=== PATIENT | male | born 1945 | race Caucasian/White ===

== ENCOUNTER 2019-03-21 17:01 | Inpatient (IN) | payer MEDICAID, OTHER ==
[~2019-03-21] VITALS: Ht 165.1 cm; Wt 66.4 kg
[~2019-03-21 17:01] MED LIST: AMLO10TA7 PO; ATOR20TA65 PO; HYDR-4153 PO; LABE100T5 PO; LEVO500T2 PO; MULT-248 PO; TAMS0.4C32 PO
[2019-03-21 17:34] LABS: BASOPHILS % (AUTO) 0.3 % (0.0-5.0); EOSINOPHILS % (AUTO) 0.2 % (0.0-8.0); HEMATOCRIT 27.6 % (42-54); LYMPHOCYTES % (AUTO) 9.1 % (21.0-51.0); MEAN CORPUSCULAR HEMOGLOBIN 33.7 pg (27.0-33.0); MEAN CORPUSCULAR VOLUME 96.3 fL (79-99); MONOCYTES % (AUTO) 4.7 % (3.0-13.0); NEUTROPHILS % (AUTO) 85.7 % (40.0-77.0); PLATELET COUNT (AUTO) 190 K/uL (130-400); RED BLOOD CELL COUNT(AUTO) 2.87 MIL/uL (4.50-6.20); RED CELL DISTRIBUTION WIDTH 13.1 % (11.0-15.5); WHITE BLOOD COUNT (AUTO) 7.9 K/uL (4.8-10.8)
[2019-03-21 17:42] LABS: CREATININE 3.1 mg/dL (0.5-1.5); POTASSIUM 4.3 mmol/L (3.5-5.1)
[2019-03-21 17:46] LABS: ALBUMIN 3.4 g/dL (3.5-5.0); BILIRUBIN,TOTAL 0.4 mg/dL (0.2-1.0)
[2019-03-21 18:00] LABS: B-TYPE NATRIURETIC PEPTIDE 1770 pg/mL (0-100)
[2019-03-21] MEDS ORDERED: FUROSEMIDE 10 MG/ML 2ML VIAL ONE (19:12)
[2019-03-21] MEDS ORDERED: IPRATROPIUM/ALBUTEROL SULFATE 3 ML SOLUTION IH ONE (20:12)
[2019-03-21] MEDS ORDERED: HYDRALAZINE HCL 20 MG/ML VIAL ONE (20:17)
[2019-03-21 20:22] LABS: APPEARANCE,URINE Clear (CLEAR); BILIRUBIN,URINE Negative (NEGATIVE); COLOR,URINE Yellow (YELLOW); GLUCOSE, URINE (UA) Negative (NEGATIVE); KETONES,URINE Negative (NEGATIVE); LEUKOCYTE ESTERASE ,URINE Large (NEGATIVE); NITRATE,URINE Positive (NEGATIVE); OCCULT BLOOD,URINE Negative (NEGATIVE); PROTEIN,URINE POS 2+ mg/dL (NEGATIVE); UROBILINOGEN,URINE 0.2 mg/dL (0.2-1.0)
[2019-03-21] MEDS ORDERED: MORPHINE SULFATE 2 MG/ML 1ML SYG IV PRN (20:45)
[2019-03-21] MEDS ORDERED: IPRATROPIUM/ALBUTEROL SULFATE 3 ML SOLUTION IH PRN (20:45)
[2019-03-21] MEDS ORDERED: ONDANSETRON HCL 4 MG/2 ML VIAL IV PRN (20:45)
[2019-03-21] MEDS ORDERED: HYDRALAZINE HCL 20 MG/ML VIAL IV PRN (20:45)
[2019-03-21] MEDS ORDERED: ACETAMINOPHEN 325 MG TAB PO PRN ×2 (20:45)
[2019-03-21] MEDS ORDERED: MORPHINE SULFATE 4 MG/1ML SYG IV PRN (20:45)
[2019-03-21 20:55] LABS: BACTERIA,URINE Many /HPF (None Seen); RBC,URINE None Seen /HPF (0-1); WBC,URINE >100 /HPF (0-1)
[2019-03-21] MEDS: FUROSEMIDE 10 MG/ML 2ML VIAL IV SCH (21:00)
[2019-03-21 21:16] LABS: ABG HCO3 26.4 mmol/L (21.0-28.0); ABG OXYGEN SATURATION 99.3 % (95.0-99.0); ABG PCO2 37 mmHg (35-48)
[2019-03-21 21:36] VITALS: BP 160/89
[2019-03-21] MEDS ORDERED: CARV6.25 PO (21:37)
[2019-03-21] MEDS ORDERED: DOCU100C33 PO (21:37)
[2019-03-21] MEDS ORDERED: FERR325T22 PO (21:37)
[2019-03-21] MEDS: ENOXAPARIN SODIUM 30 MG/0.3 ML SQ SCH (22:59)
[2019-03-21 23:00] VITALS: BP_SYST 140; BP_SYST 148; BP_DIAS 70; BP_DIAS 87
[2019-03-22 03:00] VITALS: BP 159/98
[2019-03-22 03:50] LABS: BASOPHILS % (AUTO) 0.1 % (0.0-5.0); EOSINOPHILS % (AUTO) 0.2 % (0.0-8.0); HEMATOCRIT 29.8 % (42-54); LYMPHOCYTES % (AUTO) 8.5 % (21.0-51.0); MEAN CORPUSCULAR HEMOGLOBIN 32.2 pg (27.0-33.0); MEAN CORPUSCULAR VOLUME 97.7 fL (79-99); MONOCYTES % (AUTO) 6.4 % (3.0-13.0); NEUTROPHILS % (AUTO) 84.8 % (40.0-77.0); PLATELET COUNT (AUTO) 177 K/uL (130-400); RED BLOOD CELL COUNT(AUTO) 3.05 MIL/uL (4.50-6.20); RED CELL DISTRIBUTION WIDTH 13.4 % (11.0-15.5); WHITE BLOOD COUNT (AUTO) 10.5 K/uL (4.8-10.8)
[2019-03-22 03:57] LABS: POTASSIUM 3.9 mmol/L (3.5-5.1)
[2019-03-22 04:22] LABS: B-TYPE NATRIURETIC PEPTIDE 1500 pg/mL (0-100)
[2019-03-22 04:46] LABS: ABG BASE EXCESS 3.1 mmol/L (-2.0-3.0); ABG HCO3 27.6 mmol/L (21.0-28.0); ABG OXYGEN SATURATION 98.8 % (95.0-99.0); ABG PCO2 42 mmHg (35-48)
[2019-03-22] MEDS: INSULIN HUMULIN R 100 UNIT/ML 3ML SQ SCH ×4 (05:28→21:00)
[2019-03-22 07:43] VITALS: BP 153/92
[2019-03-22] MEDS ORDERED: FAMOTIDINE/PF 20 MG/2 ML VIAL IV SCH (09:00)
[2019-03-22] MEDS: ENOXAPARIN SODIUM 30 MG/0.3 ML SQ SCH ×2 (09:27→21:07)
[2019-03-22] MEDS: FUROSEMIDE 10 MG/ML 2ML VIAL IV SCH ×2 (09:27→21:06)
[2019-03-22 11:49] VITALS: BP 137/68
[2019-03-22] MEDS ORDERED: RENAL DOSE IV SCH (12:00)
--- NOTE | 2019-03-22 13:05 | NUR ---
DYSPHAGIA EVAL COMPLETE. -S/S OF ASPIRATION. MECHANICAL SOFT/CHOPPED, THIN LIQUID DIET; PILLS WHOLE WITH LIQUIDS. PATIENT INFORMATION: Pt IS A 73 Y.O. MALE REFERRED FOR A BEDSIDE DYSPHAGIA EVALUATION SECONDARY TO POSSIBLE ASPIRATION. Pt AAOX3 AND COOPERATIVE DURING THE SESSION. DAUGHTER PRESENT AT BEDSIDE AT THE TIME OF THE EVALUATION. DAUGHTER REPORTS Pt HAS DECREASED IN P.O. SINCE DISCHARGE FROM PREVIOUS HOSPITAL IN FRIDAY. Pt WITH P.O. INTAKE TODAY. Pt CURRENTLY ADMITTED SECONDARY TO CHRONIC RENAL INSUFFICIENCY AND CHF. Pt HAS A PAST MEDICAL HISTORY SIGNIFICANT FOR CKD STAGE IV, HYPERTENSION, DMII, CAD S/P PACEMAKER, DEPRESSION, CHOLECYSTECTOMY. UPON ADMISSION, Pt WITH RIGHT MIDDLE LOBE INFILTRATES WITH POSSIBLE ASPIRATION. EVALUATION: Pt WITH POOR DENTITION (SPARSE POOR REPAIR). SWALLOW FUNCTION AND EFFICIENCY WITHIN FUNCTIONAL LIMITS. ORAL MOTOR STRENGTH, COORDINATION, AND ROM WITHIN FUNCTIONAL LIMITS. LARYNGEAL ELEVATION/EXCURSION STRONG WITH TIMELY PHARYNGEAL RESPONSE. NO OVERT SIGNS OR SYMPTOMS OF ASPIRATION PRESENT AT BEDSIDE. VOCAL QUALITY CLEAR WITH NO THROAT CLEAR OR COUGH RESPONSE PRESENT. DIET DOWNGRADE IS RECOMMENDED TO COMPENSATE FOR POOR DENTITION. RECOMMENDATIONS: 1. MECHANICAL SOFT/CHOPPED, THIN LIQUID DIET; PILLS WHOLE WITH LIQUIDS. 2. COMPENSATORY STRATEGIES (PROPHYLAXIS): *SEATED AT 90 DEGREE ANGLE *ALTERNATE BITES AND SIPS *SLOW RATE G-CODES SWALLOWING: [id number] Addendum: 03/22/19 at 1312 by ALEKSANDER QUIÑONEZ Amended: Links added.
--- NOTE | 2019-03-22 15:13 | NUR ---
cm note met with patient and states requesting i speak to daughter for interview, call made to daughter minerva, states pt resides athome with her, pt independent with ambulation with a cane, needs assist with adls, she assists with bath,etc. [facility]. dc plan is back to same home setting at time of dc. referal made to [facility] on aging as per daughter request for possible provider assist. no other dc needs. Addendum: 03/22/19 at 1515 by CASTRO BLANCO CM Amended: Links added.
[2019-03-22 15:54] VITALS: BP 160/87
[2019-03-22 18:30] LABS: PHOSPHORUS 3.9 mg/dL (2.5-4.9); POTASSIUM 3.4 mmol/L (3.5-5.1)
[2019-03-22 19:25] VITALS: BP 148/87
[2019-03-22] MEDS ORDERED: SODIUM CHLORIDE 3% FOR INHALATION 4 ML/AMP VIAL.NEB IH ONE (21:40)
[2019-03-23] VITALS (7 sets, daily range): BP systolic 143–167; BP diastolic 77–94
[2019-03-23 03:59] LABS: HEMATOCRIT 26.9 % (42-54); MEAN CORPUSCULAR HEMOGLOBIN 28.9 pg (27.0-33.0); MEAN CORPUSCULAR HGB CONC 29.9 g/dL (32.0-36.0); MEAN CORPUSCULAR VOLUME 96.7 fL (79-99); PLATELET COUNT (AUTO) 162 K/uL (130-400); RED BLOOD CELL COUNT(AUTO) 2.78 MIL/uL (4.50-6.20); RED CELL DISTRIBUTION WIDTH 13.4 % (11.0-15.5); WHITE BLOOD COUNT (AUTO) 4.8 K/uL (4.8-10.8)
[2019-03-23 04:17] LABS: ALBUMIN 2.9 g/dL (3.5-5.0); CREATININE 2.8 mg/dL (0.5-1.5); POTASSIUM 3.1 mmol/L (3.5-5.1)
[2019-03-23 04:30] LABS: B-TYPE NATRIURETIC PEPTIDE 1150 pg/mL (0-100)
--- NOTE | 2019-03-23 05:44 | NUR ---
PATIENT RESTING IN BED. DENIES SOB. CURRENTLY ON 2L NC, 02 SATS 95%. SCALES IN PLACE, DRAINING CLEAR YELLOW URINE. NO C/O OF PAIN WHILE URINATING. 24H URINE BEING COLLECTED. 2+ PITTING EDEMA TO BLE. CONTINUES TO RECEIVE DIURETIC.
[2019-03-23] MEDS: INSULIN HUMULIN R 100 UNIT/ML 3ML SQ SCH ×4 (06:07→21:00)
[2019-03-23] MEDS: ENOXAPARIN SODIUM 30 MG/0.3 ML SQ SCH ×2 (08:46→21:05)
[2019-03-23] MEDS: FUROSEMIDE 10 MG/ML 2ML VIAL IV SCH ×2 (08:46→21:05)
[2019-03-23] MEDS: FAMOTIDINE/PF 20 MG/2 ML VIAL IV SCH (08:46)
[2019-03-23] MEDS ORDERED: PHARMACY COMMUNICATION MISC SCH (09:45)
[2019-03-23] MEDS ORDERED: POTASSIUM CHLORIDE 20 MEQ ERTAB PO SCH (15:30)
[2019-03-23] MEDS: AMLODIPINE BESYLATE 5 MG TAB PO SCH (16:02)
[2019-03-23] MEDS: PHARMACY COMMUNICATION MISC SCH (18:15)
[2019-03-23 20:15] LABS: COLLECTION PERIOD,URINE 24 HR; TOTAL VOLUME 24HRS,URINE 1700 mL; TPROTEIN TIMED,URINE 47 mg/dL; TPROTEIN U,24HR CALC 799 mg/24HR (0-165)
[2019-03-23] MEDS ORDERED: CEFTRIAXONE SODIUM 2 GM VIAL IVP SCH (21:00)
[2019-03-23] MEDS ORDERED: CEFTRIAXONE SODIUM 1 GM ONE (22:09)
[2019-03-24 04:23] VITALS: BP 149/84
[2019-03-24 04:31] LABS: CREATININE 2.7 mg/dL (0.5-1.5); POTASSIUM 3.4 mmol/L (3.5-5.1)
[2019-03-24 04:35] LABS: HEMATOCRIT 26.3 % (42-54); MEAN CORPUSCULAR HEMOGLOBIN 32.9 pg (27.0-33.0); MEAN CORPUSCULAR HGB CONC 34.4 g/dL (32.0-36.0); MEAN CORPUSCULAR VOLUME 95.7 fL (79-99); PLATELET COUNT (AUTO) 204 K/uL (130-400); RED BLOOD CELL COUNT(AUTO) 2.75 MIL/uL (4.50-6.20); RED CELL DISTRIBUTION WIDTH 13.5 % (11.0-15.5); WHITE BLOOD COUNT (AUTO) 4.7 K/uL (4.8-10.8)
[2019-03-24 04:58] LABS: BASOPHILS % (MANUAL) 2 % (0-2); EOSINOPHILS % (MANUAL) 1 % (1-6); LYMPHOCYTES % (MANUAL) 14 % (22-44); MAN.DIFF COMMENT-IMPRESSION MANUAL DIFFERENTIAL; MONOCYTES % (MANUAL) 3 % (2-9); PLATELET MORPHOLOGY COMMENT ADEQUATE; REACTIVE LYMPHOCYTES 1 % (0-0); SEGMENTED NEUTROPHILS % 79 % (40-70)
[2019-03-24] MEDS: INSULIN HUMULIN R 100 UNIT/ML 3ML SQ SCH ×4 (06:50→21:00)
[2019-03-24 07:00] VITALS: BP 155/86
[2019-03-24] MEDS: FAMOTIDINE/PF 20 MG/2 ML VIAL IV SCH (08:24)
[2019-03-24] MEDS: FUROSEMIDE 10 MG/ML 2ML VIAL IV SCH ×2 (08:25→19:31)
[2019-03-24] MEDS: AMLODIPINE BESYLATE 5 MG TAB PO SCH (08:27)
[2019-03-24] MEDS: ENOXAPARIN SODIUM 30 MG/0.3 ML SQ SCH (08:27)
[2019-03-24] MEDS: PHARMACY COMMUNICATION MISC SCH ×2 (10:15→17:33)
[2019-03-24 11:00] VITALS: BP 144/69
[2019-03-24] MEDS ORDERED: POTA-9 PO (13:08)
[2019-03-24] MEDS ORDERED: FURO40TA7 PO (13:08)
[2019-03-24] MEDS ORDERED: CEFD300C3 PO (13:08)
[2019-03-24] MEDS ORDERED: POTASSIUM CHLORIDE 20 MEQ ERTAB PO SCH (13:15)
[2019-03-24] MEDS ORDERED: LOSA25TA41 PO (13:18)
[2019-03-24] MEDS: ZOSYN 3.375GM+NS 50ML 50 ML IV SCH ×2 (13:57)
[2019-03-24 16:00] VITALS: BP 161/84
[2019-03-24 19:09] VITALS: BP 156/82
[2019-03-24] MEDS ORDERED: CEFTRIAXONE SODIUM 1 GM IVP SCH (19:19)
--- NOTE | 2019-03-24 19:30 | NUR ---
ASSESSMENT PATIENT IS AAOX2. NOT ORIENTED TO TIME. PATIENT DENIES PAIN AND SHORTNESS OF BREATH. ON ROOM AIR. RESPIRATIONS UNLABORED. SINUS RHYTHM HR 70'S. SEE DOCUMENTATION FOR FULL ASSESSMENT. PATIENT PENDING DISCHARGE TONIGHT. CALL LIGHT WITHIN REACH. INSTRUCTED PATIENT TO CALL IF ASSISTANCE IS NEEDED.
--- NOTE | 2019-03-24 22:05 | NUR ---
DAUGHTER WITH PATIENT. DISCHARGE INSTRUCTIONS GIVEN TO DAUGHTER. PERIPHERAL IV REMOVED. PATIENT DISCHARGED TO HOME. PATIENT TAKEN TO E.R. EXIT VIA WHEELCHAIR BY BINDU COURTNEY.
== END 2019-03-24 22:06 | disposition home or self-care (01) | DRG 292 ==
LOC: EDH 17:01 → EDHIP 17:02 → UNDOADMIN 19:10 → EDHIP 19:10 → 3DH 19:50 → 2AH 20:07
PROVIDERS: ADMIT Hospitalist; ATTEND Hospitalist
PROC: 5A09357 Assistance with Respiratory Ventilation, Less than 24 Consecutive Hours, Continuous Positive Airway Pressure (ICD-10-PCS; principal; 2019-03-21)
DX: I13.0 Hypertensive heart and chronic kidney disease with heart failure and stage 1 through stage 4 chronic kidney disease, or unspecified chronic kidney disease (principal); N39.0 Urinary tract infection, site not specified; N18.4 Chronic kidney disease, stage 4 (severe); J81.1 Chronic pulmonary edema; E87.70 Fluid overload, unspecified; R09.02 Hypoxemia; R09.89 Other specified symptoms and signs involving the circulatory and respiratory systems; I50.9 Heart failure, unspecified; D64.9 Anemia, unspecified; E11.22 Type 2 diabetes mellitus with diabetic chronic kidney disease; F03.90 Unspecified dementia, unspecified severity, without behavioral disturbance, psychotic disturbance, mood disturbance, and anxiety; F32.9 Major depressive disorder, single episode, unspecified; I25.10 Atherosclerotic heart disease of native coronary artery without angina pectoris; Z79.84 Long term (current) use of oral hypoglycemic drugs; Z95.0 Presence of cardiac pacemaker; Z82.5 Family history of asthma and other chronic lower respiratory diseases; Z82.49 Family history of ischemic heart disease and other diseases of the circulatory system; Z84.89 Family history of other specified conditions
CPT/HCPCS: 36415; 36600; 70450; 71045; 76770; 80048; 80053; 80069; 81001; 82140; 82803; 82948; 83540; 83550; 83690; 83880; 84156; 84484; 85025; 85027; 87040; 87071; 87077; 87088; 87186; 87205; 92610; 93005; 94640; 94660; 94664; 97039; 99291; A4218; G0378; J0360; J0696; J1650; J1940; J3490